=== PATIENT | female | born 1985 | race African-American/Black ===

== ENCOUNTER 2016-08-17 22:16 | Emergency (ER) | payer OTHER ==
[2016-08-17 22:21] VITALS: BMI 28.0
--- NOTE | 2016-08-17 22:53 | PDOC ---
History of Present Illness - General History Source: Patient Exam Limitations: No Limitations - History of Present Illness Initial Comments: 08/17/16 23:12 The patient is a 31 year old female, with no significant past medical history, who presents to the emergency department complaining of vaginal bleeding since earlier this morning. The patient reports her vaginal bleeding has become increasingly heavy during the past hour and she has had to change her pad several times. She describes her heavy bleeding as if she were urinating, but she knows it is not urine. She reports intermittent cramping. She describes her bleeding as large clots, and states these symptoms are not similar to those of when she gets her period. The patient reports visiting her PROCESS DESIGNER for a routine Pap smear, which was negative. Patient reports her test yesterday was negative. The patient denies any vaginal bleeding after her Pap. The patient reports her last menstrual period was 07/15/16. The patient reports a history of 2 abortions and states she is occasionally sexually active. The patient denies any nausea, vomiting, diarrhea, or constipation. She reports some rectal pain in the past, but she does not know if it is associated with her symptoms today. The patient denies any fever, chills, cough, headache, or dizziness. Allergies: None reported. Past Surgical History: X2 Social History: Non-smoker. Denies alcohol or drug use. PCP: Dr. Khanna PROCESS DESIGNER: Dr. Green <Miles Scott - Last Filed: 08/18/16 00:28> - General History Source: Patient Exam Limitations: No Limitations <Sahara Sampson - Last Filed: 08/20/16 08:32> - General Chief Complaint: Vaginal Bleeding Stated Complaint: HEAVY VAGINAL BLEEDING Time Seen by Provider: 08/17/16 22:49 Past History <Miles Scott - Last Filed: 08/18/16 00:28> - Past Medical History Anemia: Yes - Immunization History Immunization Up to Date: Yes - Psycho/Social/Smoking Cessation Hx Anxiety: No Suicidal Ideation: No Smoking Status: No Smoking History: Never smoked Have you smoked in the past 12 months: No Number of Cigarettes Smoked Daily: 0 Hx Alcohol Use: No Drug/Substance Use Hx: No Substance Use Type: None, Marijuana Hx Substance Use Treatment: No <Sahara Sampson - Last Filed: 08/20/16 08:32> - Past Medical History Allergies/Adverse Reactions: Allergies Allergy/AdvReac Type Severity Reaction Status Date / Time No Known Allergies Allergy Verified 08/17/16 22:21 Home Medications: Ambulatory Orders NK [No Known Home Medication] 08/17/16 Review of Systems - Review of Systems Able to Perform ROS?: Yes Comments:: 08/17/16 23:12 GENERAL/CONSTITUTIONAL: No: fever, chills, weakness, loss of appetite. HEAD, EYES, EARS, NOSE AND THROAT: No: change in vision, ear pain, discharge, sore throat, throat swelling. CARDIOVASCULAR: No: chest pain, lightheadedness, palpitations, syncope RESPIRATORY: No: cough, shortness of breath, wheezing, hemoptysis, stridor. GASTROINTESTINAL: Yes:+abdominal cramping. No: nausea, vomiting, diarrhea, rectal bleeding, constipation. GENITOURINARY: No: dysuria, hematuria, frequency, urgency, flank pain. PELVIC: Yes: +vaginal bleeding(clots) MUSCULOSKELETAL: No: back pain, neck pain, joint pain, muscle swelling or pain SKIN AND BREASTS: No: lesions, pallor, rash or easy bruising. NEUROLOGIC: No: headache, vertigo, paresthesias, weakness ENDOCRINE: No: unexplained weight gain or loss HEMATOLOGIC/LYMPHATIC: No: anemia, easy bleeding, swelling nodes <Scott,Giomilsy - Last Filed: 08/18/16 00:28> *Physical Exam - Vital Signs Last Vital Signs Temp Pulse Resp BP Pulse Ox 98.8 F 64 18 107/76 98 08/17/16 22:18 08/17/16 22:18 08/17/16 22:18 08/17/16 22:18 08/17/16 22:18 - Physical Exam Comments: 08/17/16 23:14 GENERAL: The patient is in no acute distress. HEAD: Normal with no signs of trauma. EYES: PERRLA, EOMI, sclera anicteric, conjunctiva clear. ENT: Ears normal, nares patent, oropharynx clear without exudates. Moist mucous membranes. NECK: Normal range of motion, supple without lymphadenopathy, JVD, or masses. LUNGS: Breath sounds equal, clear to auscultation bilaterally. No wheezes, and no crackles. HEART:Regular rate and rhythm, normal S1 and S2 without murmur, rub or gallop. ABDOMEN: Soft, nontender, normoactive bowel sounds. No guarding, no rebound. PELVIC: Metrorrhagia, Blood pooling in vaginal vault EXTREMITIES: Normal range of motion, no edema. No clubbing or cyanosis. No erythema, or tenderness. NEUROLOGICAL: Cranial nerves II through XII grossly intact. Normal speech. No focal neurological deficits. MUSCULOSKELETAL: Back non-tender to palpation, no CVA tenderness SKIN: Warm, Dry, normal turgor, no rashes or lesions noted. <Miles Scott - Last Filed: 08/18/16 00:28> - Vital Signs Last Vital Signs Temp Pulse Resp BP Pulse Ox 98.8 F 64 18 107/76 98 08/17/16 22:18 08/17/16 22:18 08/17/16 22:18 08/17/16 22:18 08/17/16 22:18 <Sahara Sampson - Last Filed: 08/20/16 08:32> ED Treatment Course - LABORATORY CBC & Chemistry Diagram: 08/17/16 23:16 08/17/16 23:16 - RADIOLOGY Radiograph Interpretation: 08/18/16 00:29 EXAM: Pelvic US INTERPRETED BY: Dr. Felix REVIEWED BY: Dr. Sampson IMPRESSION: 2.1 cm complex right ovarian cyst may be collapsing and/or hemorrhagic in nature, with a small amount of pelvic free fluid. <Miles Scott - Last Filed: 08/18/16 00:28> - LABORATORY CBC & Chemistry Diagram: 08/18/16 04:50 08/17/16 23:16 <Sahara Sampson - Last Filed: 08/20/16 08:32> Medical Decision Making - Medical Decision Making 08/18/16 00:28 First call placed to Dr. Green at 00:28. Case discussed at this time. <Miles Scott - Last Filed: 08/18/16 00:28> - Medical Decision Making 08/17/16 22:52 A portion of this note was documented by scribe services under my direction. I have reviewed the details of the note, within reason, and agree with the documentation with the following case summary and management plan written by me. Nursing documentation reviewed and incorporated into medical decision making 08/18/16 00:38 This is a 31-year-old female who presents emergency department with a complaint of his heavy vaginal bleeding. Patient states she was in her usual state of health until this morning when she noted mild vaginal bleeding. Over the course of the day her bleeding became heavier, and is associated with clots. She reports no history of fibroids or cysts in the past. She was seen yesterday by her aircraft maintenance manager within a Pap smear which per patient was uncomplicated and did not immediately result in pain or bleeding. She reports mild lower abdominal crampy pain. Patient denies lightheadedness or dizziness. On examination: Nml external genitalia When speculum is inserted, bright blood noted pooling in the vaginal vault. On bimanual examination, no pain with cervical motion tenderness, no adnexal masses will do basic labs Will do transvaginal US Laboratory Tests 04/22/16 08/17/16 08/17/16 18:30 23:16 23:16 WBC 6.3 7.4 Hgb 13.3 13.7 Hct 40.3 39.8 Plt Count 184 190 INR BUN Creatinine Urine HCG, Qual Negative 08/17/16 08/17/16 23:16 23:16 WBC Hgb Hct Plt Count INR 1.12 BUN 11 Creatinine 1.1 H Urine HCG, Qual Transvaginal ultrasound demonstrates rupturing right-sided hemorrhagic ovarian cyst measuring 2.1 cm. Case reviewed with patient's primary APPLICATIONS TESTER Dr. Green who states patient can be discharged to home if she does not have severe lower abdominal pain. Given the amount of bleeding patient demonstrated on my exam, will hold patient in the ER, repeat CBC in 6 hours. Will ask patient to do a pad count. Will monitor for worsening abdominal pain. Pt signed out to Dr. Redd 08/18/16 00:43 <Sahara Sampson - Last Filed: 08/20/16 08:32> *DC/Admit/Observation/Transfer - Attestations Scribe Attestion: 08/17/16 23:12 Documentation prepared by Miles Scott, acting as medical appointment scheduler for Sahara Sampson MD. <Miles Scott - Last Filed: 08/18/16 00:28> <Sahara Sampson - Last Filed: 08/20/16 08:32> Diagnosis at time of Disposition: Vaginal bleeding - Discharge Dispostion Disposition: HOME Condition at time of disposition: Good - Referrals Referrals: Isaac Khanna [Primary Care Provider] - - Patient Instructions Additional Instructions: As discussed, with the hemoglobin being slightly higher and you pulse rate consistent you are safe for discharge. If there is any increase in bleeding or if you have any chest pain, palpitations, SOB, light headedness, dizziness, or if you are simply not feeling well, please return immediately to the ED.
[2016-08-17 23:31] LABS: BASOPHIL 1.2 % (0-2.0); EOSINOPHIL 3.5 % (0-4.5); MCHC 34.3 g/dl (32.0-36.0); MEAN CELL VOLUME 87.6 fl (80-96); MEAN PLT VOLUME 10.9 fl (7.5-11.1); NEUTROPHILS 57.3 % (42.8-82.8); RDW 13.2 % (11.6-15.6); WHITE BLOOD COUNT 7.4 K/mm3 (4.0-10.0)
[2016-08-18] LABS: PLATELET COUNT 190 K/MM3 (134-434)
[2016-08-18 00:01] LABS: ALBUMIN 4.1 g/dl (3.4-5.0); BILIRUBIN,TOTAL 0.3 mg/dL (0.2-1.0); CALCIUM 9.4 mg/dL (8.5-10.1); CREATININE 1.1 mg/dL (0.55-1.02); PLATELET ESTIMATE ADEQUATE (NORMAL)
[2016-08-18 00:02] LABS: PLATELET COMMENT2 NO CLOTTING DETECTED; PLATELET COMMENT3 MOD LARGE PLTS
[2016-08-18 00:06] LABS: INR 1.12 (0.82-1.09); PROTHROMBIN TIME (PATIENT) 12.4 SEC (9.98-11.88)
[2016-08-18 05:03] LABS: BASOPHIL 0.8 % (0-2.0); EOSINOPHIL 3.3 % (0-4.5); MCH 29.9 pg (25.7-33.7); MCHC 33.8 g/dl (32.0-36.0); MEAN CELL VOLUME 88.6 fl (80-96); MEAN PLT VOLUME 11.1 fl (7.5-11.1); NEUTROPHILS 54.5 % (42.8-82.8); PLATELET COUNT 182 K/MM3 (134-434); RDW 13.5 % (11.6-15.6); WHITE BLOOD COUNT 6.6 K/mm3 (4.0-10.0)
[2016-08-18] MEDS ORDERED: ACETAMINOPHEN 325 MG TABLET (FP) ONE (05:07)
[2016-08-18] MEDS ORDERED: ACETAMINOPHEN 325 MG TABLET (FP) PO ONE (05:08)
[2016-08-18 05:26] LABS: PLATELET ESTIMATE ADEQUATE (NORMAL)
[2016-08-18 05:27] LABS: PLATELET COMMENT2 NO CLOTTING DETECTED
--- NOTE | 2016-08-18 06:10 | PDOC ---
*Physical Exam - Vital Signs Last Vital Signs Temp Pulse Resp BP Pulse Ox 98.2 F 81 17 109/85 99 08/18/16 05:11 08/18/16 05:11 08/18/16 05:11 08/18/16 05:11 08/18/16 05:11 ED Treatment Course - LABORATORY CBC & Chemistry Diagram: 08/18/16 04:50 08/17/16 23:16 - ADDITIONAL ORDERS Additional order review: Laboratory Results 08/17/16 08/17/16 08/17/16 23:16 23:16 23:16 INR 1.12 Sodium 141 Potassium 4.0 Chloride 106 Carbon Dioxide 27 Anion Gap 8 BUN 11 Creatinine 1.1 H Creat Clearance w eGFR 58.72 Random Glucose 94 D Calcium 9.4 Total Bilirubin 0.3 D AST 22 ALT 23 D Alkaline Phosphatase 49 Total Protein 8.0 Albumin 4.1 Urine HCG, Qual Negative 08/18/16 08/17/16 04:50 23:16 RBC 4.43 4.55 MCV 88.6 87.6 MCHC 33.8 34.3 RDW 13.5 13.2 MPV 11.1 10.9 Neutrophils % 54.5 57.3 Lymphocytes % 33.0 31.6 Monocytes % 8.4 6.4 Eosinophils % 3.3 3.5 Basophils % 0.8 1.2 - Medications Given in the ED: ED Medications Discontinued Medications Generic Name Dose Route Start Last Admin Trade Name Clintq PRN Reason Stop Dose Admin Acetaminophen 975 mg 08/18/16 05:08 08/18/16 05:10 Tylenol - PO 08/18/16 05:09 975 mg ONCE ONE Administration Medical Decision Making - Medical Decision Making 08/18/16 06:08 Pt received on sign out, comfortable and with no new complaints; she has a repeat hemoglobin that is consistent with the previous on file; there is no tachycardia and she reports there being a decreased number of pads in the last few hours while awaiting the repeat CBC; she was able to sleep as well. She is feeling well at this time and has no findings on PE; she is encouraged to follow up with the PMD within the next 48 hours and return if there is any change otherwise in symptoms. *DC/Admit/Observation/Transfer Diagnosis at time of Disposition: Vaginal bleeding - Discharge Dispostion Disposition: HOME Condition at time of disposition: Good Admit: No Decision to Admit order Date/Time: 08/18/16 06:06 - Referrals Referrals: Isaac Khanna [Primary Care Provider] - - Patient Instructions Additional Instructions: As discussed, with the hemoglobin being slightly higher and you pulse rate consistent you are safe for discharge. If there is any increase in bleeding or if you have any chest pain, palpitations, SOB, light headedness, dizziness, or if you are simply not feeling well, please return immediately to the ED. - Post Discharge Activity
[2016-08-18 06:32] VITALS: BP 128/81; PULSE 78; TEMP 98.3
== END 2016-08-18 06:33 | disposition home or self-care (01) ==
LOC: JER 22:16
DX: N93.8 Other specified abnormal uterine and vaginal bleeding (principal); N83.201 Unspecified ovarian cyst, right side
CPT/HCPCS: 36415; 76830-TC; 80053; 84703; 85025; 85610; 99284-25

== ENCOUNTER 2017-10-16 23:31 | Emergency (ER) | payer OTHER ==
[2017-10-17] VITALS: BP 129/81; PULSE 86; TEMP 98.5; BMI 31.3
--- NOTE | 2017-10-17 00:48 | PDOC ---
History of Present Illness - General Chief Complaint: Injury Stated Complaint: FINGER INJURY Time Seen by Provider: 10/17/17 00:36 History Source: Patient - History of Present Illness Initial Comments: 10/17/17 02:13 32-year-old female with left fourth digit finger dislocation and pain 2 hours prior to arrival. Patient reports that she had a hand outstretched and accidentally banged the hand on the person in front of her noted to have increased swelling and pain to the DIP. Limited range of motion no deformity noted at this time 0 Past History - Past Medical History Allergies/Adverse Reactions: Allergies Allergy/AdvReac Type Severity Reaction Status Date / Time No Known Allergies Allergy Verified 10/16/17 23:57 Home Medications: Ambulatory Orders Ibuprofen [Motrin -] 600 mg PO QID PRN #20 tablet 10/17/17 Oxycodone HCl/Acetaminophen [Percocet 5-325 mg Tablet] 1 tab PO Q6H PRN #7 tablet MDD 4 10/17/17 Anemia: Yes COPD: Yes - Reproductive History Therapeutic (s) & number: Yes (2) - Immunization History Immunization Up to Date: Yes - Suicide/Smoking/Psychosocial Hx Smoking Status: No Smoking History: Never smoked Have you smoked in the past 12 months: No Number of Cigarettes Smoked Daily: 0 Information on smoking cessation initiated: No Hx Alcohol Use: No Drug/Substance Use Hx: Yes (mirajuana) Substance Use Type: Marijuana Hx Substance Use Treatment: No Review of Systems - Review of Systems Able to Perform ROS?: Yes Is the patient limited [place] proficient: No Constitutional: No: Symptoms Reported, See HPI, Chills, Diaphoresis, Fever, Loss of Appetite, Malaise, Night Sweats, Weakness, Weight Stable, Unintentional Wgt. Loss, Unexplained wgt Loss, Other Musculoskeletal: Yes: Other (left 4th digit DIP joint pain and swelling) *Physical Exam - Vital Signs Last Vital Signs Temp Pulse Resp BP Pulse Ox 98.5 F 86 18 129/81 100 10/16/17 23:53 10/16/17 23:53 10/16/17 23:53 10/16/17 23:53 10/16/17 23:53 - Physical Exam General Appearance: Yes: Appropriately Dressed Extremity: positive: Swelling (left 4 th digit limited rom moderate swelling ) Integumentary: positive: Normal Color, Dry, Warm Neurologic: positive: Fully Oriented, Alert, Normal Mood/Affect Procedures - Splinting Splint Location: Left: Finger Pre-Proc Neuro Vasc Exam: normal *DC/Admit/Observation/Transfer Diagnosis at time of Disposition: Finger fracture, left Qualifiers: Encounter type: initial encounter Finger: ring finger Fracture type: closed Phalanx: distal Fracture alignment: displaced Qualified Code(s): S62.635A - Displaced fracture of distal phalanx of left ring finger, initial encounter for closed fracture - Discharge Dispostion Disposition: HOME Condition at time of disposition: Fair - Prescriptions Prescriptions: Ibuprofen [Motrin -] 600 mg PO QID PRN #20 tablet PRN Reason: Moderate Pain Oxycodone HCl/Acetaminophen [Percocet 5-325 mg Tablet] 1 tab PO Q6H PRN #7 tablet MDD 4 PRN Reason: Moderate Pain - Referrals Referrals: Nya Khanna [Primary Care Provider] - Mino Rosario MD [Staff Physician] - Call tomorrow - Patient Instructions Printed Discharge Instructions: Finger Fracture Additional Instructions: keep finger in splint. follow up wit orthopedic doctor as soon as possible. rest ice take ibuprofen every 6 hours as needed for pain. - Post Discharge Activity Forms/Work/School Notes: Back to Work
== END 2017-10-17 03:22 | disposition home or self-care (01) ==
LOC: JER 23:31
PROC: 2W3KX1Z Immobilization of Left Finger using Splint (ICD-10-PCS; principal; 2017-10-16)
DX: S62.635A Displaced fracture of distal phalanx of left ring finger, initial encounter for closed fracture (principal); W51.XXXA Accidental striking against or bumped into by another person, initial encounter; Y93.89 Activity, other specified; Y92.414 Local residential or business street as the place of occurrence of the external cause; Y99.8 Other external cause status
CPT/HCPCS: 73140-TC-LT-FY; 84703; 99281-25

== ENCOUNTER 2018-07-04 13:58 | Emergency (ER) | payer OTHER ==
[2018-07-04 14:11] VITALS: BP 130/84; PULSE 85; TEMP 98.1; BMI 31.4
[2018-07-04] MEDS ORDERED: MAG HYDROX/AL HYDROX/SIMETH 30 ML UNIT-DOSE CUP PO ONE (15:15)
[2018-07-04] MEDS ORDERED: SODIUM CHLORIDE 1,000 ML IV STA (15:15)
[2018-07-04] MEDS ORDERED: FAMOTIDINE 20 MG/50 ML IVPB 20 MG/50 ML MG IVPB ONE ×2 (15:15→15:22)
[2018-07-04] MEDS ORDERED: MAG HYDROX/AL HYDROX/SIMETH 30 ML UNIT-DOSE CUP ONE (15:22)
--- NOTE | 2018-07-04 15:27 | PDOC ---
History of Present Illness - General Chief Complaint: Nausea/Vomiting Stated Complaint: WEAKNESS / ABD PAIN Time Seen by Provider: 07/04/18 15:05 History Source: Patient - History of Present Illness Timing/Duration: reports: getting worse Quality: reports: severe Abdominal Pain Onset Location: reports: epigastric Pain Radiation: reports: no radiation Past History - Past Medical History Allergies/Adverse Reactions: Allergies Allergy/AdvReac Type Severity Reaction Status Date / Time No Known Allergies Allergy Verified 10/16/17 23:57 Home Medications: Ambulatory Orders Metoclopramide HCl [Reglan] 10 mg PO Q8H #12 tablet 07/04/18 Anemia: Yes Asthma: No Cancer: No Cardiac Disorders: No COPD: Yes - Surgical History Abdominal Surgery: No Appendectomy: No Cardiac Surgery: No - Reproductive History Therapeutic (s) & number: Yes (2) - Immunization History Immunization Up to Date: Yes - Suicide/Smoking/Psychosocial Hx Smoking Status: No Smoking History: Never smoked Have you smoked in the past 12 months: No Number of Cigarettes Smoked Daily: 0 Information on smoking cessation initiated: No Hx Alcohol Use: No Drug/Substance Use Hx: No Substance Use Type: Marijuana Hx Substance Use Treatment: No Review of Systems - Review of Systems Constitutional: No: Fever Respiratory: No: Shortness of Breath Cardiac (ROS): No: Chest Pain ABD/GI: Yes: Nausea, Vomiting. No: Diarrhea : No: Dysuria, Flank Pain, Hematuria *Physical Exam - Vital Signs Last Vital Signs Temp Pulse Resp BP Pulse Ox 98.1 F 85 20 130/84 100 07/04/18 14:07 07/04/18 14:07 07/04/18 14:07 07/04/18 14:07 07/04/18 14:07 - Physical Exam General Appearance: Yes: Appropriately Dressed, Moderate Distress HEENT: positive: Normal Voice Neck: positive: Supple Respiratory/Chest: positive: Lungs Clear, Normal Breath Sounds. negative: Respiratory Distress Cardiovascular: positive: Regular Rate, S1, S2 Gastrointestinal/Abdominal: positive: Normal Bowel Sounds, Tender (to epigastrium, NT over RUQ or mcburneys), Soft. negative: Distended, Guarding, Rebound Musculoskeletal: negative: CVA Tenderness Integumentary: positive: Dry, Warm Neurologic: positive: Fully Oriented, Alert, Normal Mood/Affect Moderate Sedation - Procedure Monitoring Vital Signs: Procedure Monitoring Vital Signs Temperature 98.1 F 07/04/18 14:07 Pulse Rate 85 07/04/18 14:07 Respiratory Rate 20 07/04/18 14:07 Blood Pressure 130/84 07/04/18 14:07 O2 Sat by Pulse Oximetry (%) 100 07/04/18 14:07 ED Treatment Course - LABORATORY CBC & Chemistry Diagram: 07/04/18 15:40 07/04/18 15:40 Medical Decision Making - Medical Decision Making 07/04/18 15:13 33 yo F, no sig hx, here w/ n/v and epigastric pain. States for the past week she's had almost daily symptoms consistent of nausea, vomiting and at some point developed epigastric pain. Reports feeling significantly weak at this time like " I am about to pass out" per pt. Denies any diarrhea, melena, bright blood per rectum, fever or chills. No history of similar episode. Denies alcohol use and smokes marijuana infrequently. Denies frequent NSAID use See exam Gastritis/GERD vs pancreatitis vs biliary source, less likely renal colic or appy -trail of GI cocktail -IVF -labs -reassess 07/04/18 16:35 test +. Pt was unaware. States her menses are sometimes irregular. Last normal menstrual period was around 05/22/2018. Beta quant and ultrasound pending. UA also pending 07/04/18 16:38 07/04/18 18:24 Beta quant over 50,000. Ultrasound read as IUP @ 7 weeks 2 days with cardiac activity. Patient aware of results. Currently asymptomatic and able to tolerate po. Will dc with EL TEACHER follow-up *DC/Admit/Observation/Transfer Diagnosis at time of Disposition: Qualifiers: Weeks of gestation: unspecified Qualified Code(s): Z34.90 - Encounter for supervision of normal , unspecified, unspecified trimester - Discharge Dispostion Disposition: HOME Condition at time of disposition: Improved - Prescriptions Prescriptions: Metoclopramide HCl [Reglan] 10 mg PO Q8H #12 tablet - Referrals Referrals: Nya Khanna [Primary Care Provider] - - Patient Instructions Printed Discharge Instructions: Managing Symptoms of Additional Instructions: Your tests today shows that you are at about 7 weeks 2 days with cardiac activity. Your beta quant was over 50,000. Rest of your labs were normal. Please follow-up with your OB next week for initial care and testing - Post Discharge Activity
[2018-07-04] MEDS ORDERED: ONDANSETRON 4 MG/2 ML VIAL IVPUSH ONE (15:35)
[2018-07-04] MEDS ORDERED: ONDANSETRON 4 MG/2 ML VIAL ONE (15:44)
[2018-07-04 15:52] LABS: BASO % 0.7 % (0-2.0); EOS % 0.9 % (0-4.5); HEMATOCRIT 40.1 % (32.4-45.2); HEMOGLOBIN 13.9 GM/dL (10.7-15.3); LYMPH % 16.5 % (8-40); MCH 30.7 pg (25.7-33.7); MCHC 34.7 g/dl (32.0-36.0); MEAN CELL VOLUME 88.6 fl (80-96); MEAN PLT VOLUME 11.1 fl (7.5-11.1); MONO % 5.5 % (3.8-10.2); NEUT % 76.4 % (42.8-82.8); PLATELET COUNT 175 K/MM3 (134-434); RBC 4.52 M/mm3 (3.60-5.2); RDW 13.2 % (11.6-15.6)
[2018-07-04 16:02] LABS: ALBUMIN 3.7 g/dl (3.4-5.0); ALK PHOS 43 U/L (45-117); ANION GAP 7 MMOL/L (8-16); BILIRUBIN,TOTAL 0.4 mg/dL (0.2-1); BLOOD UREA NITROGEN 6 mg/dL (7-18); CHLORIDE 106 mmol/L (98-107); CO2 24 mmol/L (21-32); CREATININE 0.7 mg/dL (0.55-1.3); GLUCOSE,RANDOM 76 mg/dL (74-106); LIPASE 142 U/L (73-393); POTASSIUM 3.7 mmol/L (3.5-5.1); SGOT/AST 13 U/L (15-37); SGPT/ALT 14 U/L (13-61); SODIUM 137 mmol/L (136-145); TOT PROT 7.7 g/dl (6.4-8.2)
[2018-07-04 18:00] LABS: URINE APPEARANCE CLEAR; URINE BILIRUBIN NEGATIVE (<2.0 mg/dL); URINE COLOR LTYELLOW; URINE GLUCOSE (UA) NEGATIVE (NEGATIVE); URINE KETONE 1+ (NEGATIVE); URINE LEUK ESTERASE NEGATIVE (NEGATIVE); URINE NITRITE NEGATIVE (NEGATIVE); URINE PROTEIN NEGATIVE (NEGATIVE); URINE UROBILINOGEN NEGATIVE mg/dL (0.2-1.0)
== END 2018-07-04 18:34 | disposition home or self-care (01) ==
LOC: JER 13:58
PROC: 3E033GC Introduction of Other Therapeutic Substance into Peripheral Vein, Percutaneous Approach (ICD-10-PCS; principal; 2018-07-04)
PROC: 3E033GC Introduction of Other Therapeutic Substance into Peripheral Vein, Percutaneous Approach (ICD-10-PCS; 2018-07-04)
DX: O26.891 Other specified pregnancy related conditions, first trimester (principal); R10.13 Epigastric pain; R11.2 Nausea with vomiting, unspecified; Z3A.01 Less than 8 weeks gestation of pregnancy
CPT/HCPCS: 36415; 76801-TC; 80053; 80307; 81003; 83690; 84702; 84703; 85025; 96365; 96375; 99282-25; J7030

== ENCOUNTER 2018-07-11 07:38 | Emergency (ER) | payer OTHER ==
[2018-07-11 07:51] VITALS: BP 126/79; PULSE 89; TEMP 98.8; BMI 31.4
[2018-07-11] MEDS ORDERED: ACETAMINOPHEN 325 MG TABLET (FP) PO ONE (08:10)
--- NOTE | 2018-07-11 08:17 | PDOC ---
History of Present Illness - General Chief Complaint: Vaginal Bleeding Stated Complaint: VAGINAL BLEEDING/8 WKS Time Seen by Provider: 07/11/18 08:01 History Source: Patient Exam Limitations: No Limitations Past History - Past Medical History Allergies/Adverse Reactions: Allergies Allergy/AdvReac Type Severity Reaction Status Date / Time No Known Allergies Allergy Verified 07/11/18 07:50 Home Medications: Ambulatory Orders Metoclopramide HCl [Reglan] 10 mg PO Q8H #12 tablet 07/04/18 Anemia: Yes Asthma: No Cancer: No Cardiac Disorders: No COPD: No - Surgical History Abdominal Surgery: No Appendectomy: No Cardiac Surgery: No - Reproductive History Therapeutic (s) & number: Yes (2) - Immunization History Immunization Up to Date: Yes - Suicide/Smoking/Psychosocial Hx Smoking Status: No Smoking History: Never smoked Have you smoked in the past 12 months: No Number of Cigarettes Smoked Daily: 0 Hx Alcohol Use: No Drug/Substance Use Hx: No Substance Use Type: Marijuana Hx Substance Use Treatment: No *Physical Exam - Vital Signs Last Vital Signs Temp Pulse Resp BP Pulse Ox 98.8 F 89 18 126/79 99 07/11/18 07:46 07/11/18 07:46 07/11/18 07:46 07/11/18 07:46 07/11/18 07:46 - Physical Exam General Appearance: No: Apparent Distress Respiratory/Chest: positive: Lungs Clear, Normal Breath Sounds. negative: Respiratory Distress Cardiovascular: positive: Regular Rhythm, Regular Rate, S1, S2. negative: Murmur Female Pelvic Exam: positive: other (small pinkish discharge, no bleeding noted , cervical os closed). negative: adnexal tenderness Gastrointestinal/Abdominal: positive: Normal Bowel Sounds, Soft. negative: Tender, Distended, Guarding, Rebound Integumentary: positive: Normal Color Neurologic: positive: Alert, Normal Mood/Affect Moderate Sedation - Procedure Monitoring Vital Signs: Procedure Monitoring Vital Signs Temperature 98.8 F 07/11/18 07:46 Pulse Rate 89 07/11/18 07:46 Respiratory Rate 18 07/11/18 07:46 Blood Pressure 126/79 07/11/18 07:46 O2 Sat by Pulse Oximetry (%) 99 07/11/18 07:46 Medical Decision Making - Medical Decision Making 33 y/o (hx of 2 abortions), recently found out she was a week ago presents with vaginal spotting from yesterday along with very mild RLQ pain. Mentions she had some spotting around 2 weeks ago as well, but that resolved within a day. Last saw her CLAY PRESS OPERATOR for follow-up 5 days ago. Denies fever, sob, cp, n/v/d, urinary complaints Likely threatened Patient had ultrasound done last week confirming IUP so not suspicious for ectopic Plan: Bhcg, Type and screen, Tylenol, reassess 07/11/18 08:17 Bhcg higher than last week Rh positive Stable for dc 07/11/18 10:31 *DC/Admit/Observation/Transfer Diagnosis at time of Disposition: Threatened - Discharge Dispostion Disposition: HOME Condition at time of disposition: Stable Decision to Admit order: No - Referrals Referrals: Nya Khanna [Primary Care Provider] - 2 Days - Patient Instructions Printed Discharge Instructions: DI for Threatened Additional Instructions: Thank you for choosing [facility]. It was a pleasure taking care of you. Recommend pelvic rest Avoid intercourse or heavy work Continue followup with your CLAY PRESS OPERATOR Return to the Emergency Department if your symptoms worsen or persist, you have fever, shortness of breath, chest pain, severe abdominal pain, heavy vaginal bleeding or other concerning symptoms. - Post Discharge Activity
[2018-07-11] MEDS ORDERED: ACETAMINOPHEN 325 MG TABLET (FP) ONE (08:30)
== END 2018-07-11 10:54 | disposition home or self-care (01) ==
LOC: JER 07:38
PROC: 3E033GC Introduction of Other Therapeutic Substance into Peripheral Vein, Percutaneous Approach (ICD-10-PCS; principal; 2018-07-11)
PROC: 3E0233Z Introduction of Anti-inflammatory into Muscle, Percutaneous Approach (ICD-10-PCS; 2018-07-11)
DX: O26.891 Other specified pregnancy related conditions, first trimester (principal); O20.0 Threatened abortion; Z3A.08 8 weeks gestation of pregnancy
CPT/HCPCS: 36415; 84702; 86850; 86900; 86901; 96372; 96374; 99282-25

== ENCOUNTER 2018-08-24 12:32 | Emergency (ER) | payer OTHER ==
[2018-08-24 12:59] VITALS: TEMP 98.2; BMI 31.4
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
[2018-08-24] MEDS ORDERED: METOCLOPRAMIDE HCL INJECTION 10 MG/2 ML VIAL IVPUSH ONE (13:28)
[2018-08-24] MEDS ORDERED: ACETAMINOPHEN 1000 MG/100 ML VIAL (NON FORMULARY) IVPB ONE (13:28)
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
[2018-08-24] MEDS ORDERED: ACETAMINOPHEN INJECTION 100 ML IVPB ONE (14:07)
[2018-08-24] MEDS ORDERED: METOCLOPRAMIDE HCL INJECTION 10 MG/2 ML VIAL ONE (14:07)
[2018-08-24 14:14] LABS: URINE APPEARANCE CLEAR; URINE BILIRUBIN NEGATIVE (NEGATIVE); URINE COLOR YELLOW; URINE GLUCOSE (UA) NEGATIVE (NEGATIVE); URINE KETONE NEGATIVE (NEGATIVE); URINE LEUK ESTERASE NEGATIVE (NEGATIVE); URINE NITRITE NEGATIVE (NEGATIVE); URINE PROTEIN NEGATIVE (NEGATIVE)
[2018-08-24 14:31] LABS: EOS % 3.3 % (0-4.5); HEMATOCRIT 36.2 % (32.4-45.2); HEMOGLOBIN 12.5 GM/dL (10.7-15.3); LYMPH % 24.3 % (8-40); MCHC 34.5 g/dl (32.0-36.0); MEAN CELL VOLUME 86.9 fl (80-96); MEAN PLT VOLUME 10.8 fl (7.5-11.1); MONO % 6.6 % (3.8-10.2); NEUT % 64.8 % (42.8-82.8); PLATELET COUNT 182 K/MM3 (134-434); RBC 4.16 M/mm3 (3.60-5.2); RDW 13.4 % (11.6-15.6); WHITE BLOOD COUNT 7.2 K/mm3 (4.0-10.0)
[2018-08-24 15:03] LABS: ALBUMIN 3.4 g/dl (3.4-5.0); ALK PHOS 48 U/L (45-117); ANION GAP 8 MMOL/L (8-16); BILIRUBIN,TOTAL 0.1 mg/dL (0.2-1); BLOOD UREA NITROGEN 8 mg/dL (7-18); CALCIUM 9.1 mg/dL (8.5-10.1); CHLORIDE 107 mmol/L (98-107); CO2 20 mmol/L (21-32); CREATININE 0.7 mg/dL (0.55-1.3); GLUCOSE,RANDOM 75 mg/dL (74-106); POTASSIUM 4.4 mmol/L (3.5-5.1); SGOT/AST 24 U/L (15-37); SGPT/ALT 27 U/L (13-61); SODIUM 135 mmol/L (136-145); TOT PROT 7.6 g/dl (6.4-8.2)
[2018-08-24 16:19] VITALS: BP 120/78; PULSE 88
== END 2018-08-24 16:19 | disposition home or self-care (01) ==
LOC: JER 12:32
PROC: 3E033GC Introduction of Other Therapeutic Substance into Peripheral Vein, Percutaneous Approach (ICD-10-PCS; principal; 2018-08-24)
PROC: 3E033NZ Introduction of Analgesics, Hypnotics, Sedatives into Peripheral Vein, Percutaneous Approach (ICD-10-PCS; 2018-08-24)
DX: O26.892 Other specified pregnancy related conditions, second trimester (principal); R10.30 Lower abdominal pain, unspecified; Z3A.14 14 weeks gestation of pregnancy; V43.52XA Car driver injured in collision with other type car in traffic accident, initial encounter; Y92.488 Other paved roadways as the place of occurrence of the external cause; Y93.89 Activity, other specified; Y99.8 Other external cause status
CPT/HCPCS: 36415; 76815-TC; 80053; 81003; 85025; 99282-25; J0131

== ENCOUNTER 2019-02-18 04:45 | Inpatient (IN) | payer OTHER ==
[2019-02-18 05:59] VITALS: BMI 35.7
[2019-02-18 06:31] LABS: BASO % 0.9 % (0-2.0); EOS % 2.2 % (0-4.5); HEMATOCRIT 32.9 % (32.4-45.2); HEMOGLOBIN 11.4 GM/dL (10.7-15.3); LYMPH % 12.8 % (8-40); MCH 29.9 pg (25.7-33.7); MCHC 34.5 g/dl (32.0-36.0); MEAN CELL VOLUME 86.6 fl (80-96); MONO % 7.1 % (3.8-10.2); PLATELET COUNT 148 K/MM3 (134-434); RDW 14.3 % (11.6-15.6); WHITE BLOOD COUNT 11.1 K/mm3 (4.0-10.0)
[2019-02-18 06:51] LABS: INR 0.91 (0.83-1.09); PROTHROMBIN TIME (PATIENT) 10.7 SEC (9.7-13.0)
[2019-02-18 06:54] LABS: ACTIVATED PTT 25.7 SECONDS (25.2-36.5)
[2019-02-18 07:02] LABS: BLOOD UREA NITROGEN 7.3 mg/dL (7-18); CALCIUM 8.8 mg/dL (8.5-10.1); CREATININE 0.7 mg/dL (0.55-1.3); POTASSIUM 3.8 mmol/L (3.5-5.1)
[2019-02-18] MEDS ORDERED: DEXTROSE 5%-LACTATED RINGERS 1,000 ML IV SCH (09:15)
[2019-02-18] MEDS ORDERED: AMPICILLIN - 2 GM in SODIUM CHLORIDE 100 ML IVPB ONE (10:00)
[2019-02-18] MEDS ORDERED: AMPICILLIN SODIUM 2 GM VIAL ONE (10:00)
[2019-02-18] MEDS ORDERED: ELECTROLYTE-148 SOLN 1,000 ML IV SCH (10:15)
--- NOTE | 2019-02-18 10:18 | HP ---
Past Medical History - Admission Chief Complaint: Labor pain History of Present Illness: 33 yo @ 39 weeks gestation, EDC 02/19/19, with one previous , admitted for labor pain. She desires vaginal after previous . History Source: Patient Limitations to Obtaining History: No Limitations - Past Medical History ...: 4 ...Para: 1 ...Term: 1 ...Induced : 2 ...LMP: 05/14/18 ... Weeks Gestation by Dates: 39.6 ...EDC by Dates: 02/19/19 ...EDC by Sono: 02/19/19 - Past Surgical History Past Surgical History: Yes: Hx Myomectomy: No Hx Transabdominal Cerclage: No - Smoking History Smoking history: Unknown if ever smoked Have you smoked in the past 12 months: No Aproximately how many cigarettes per day: 0 - Alcohol/Substance Use Hx Alcohol Use: No - Social History Usual Living Arrangement: Yes: With Child History of Recent Travel: No Home Medications - Allergies Allergies/Adverse Reactions: Allergies Allergy/AdvReac Type Severity Reaction Status Date / Time No Known Allergies Allergy Verified 02/11/19 08:33 - Home Medications Home Medications: Ambulatory Orders Prenat 115/Iron Fum/Folic/Dss [ 19 Tablet] 1 tab PO DAILY 02/07/19 Family Medical History Family History: Unremarkable Review of Systems - Review of Systems Constitutional: reports: No Symptoms Eyes: reports: No Symptoms HENT: reports: No Symptoms Neck: reports: No Symptoms Cardiovascular: reports: No Symptoms Respiratory: reports: No Symptoms Gastrointestinal: reports: No Symptoms Genitourinary: reports: Pain Breasts: reports: No Symptoms Reported Musculoskeletal: reports: No Symptoms Integumentary: reports: No Symptoms Neurological: reports: No Symptoms Endocrine: reports: No Symptoms Hematology/Lymphatic: reports: No Symptoms Psychiatric: reports: No Symptoms Pain Intensity: 7 Physical Exam - Maternity Vital Signs: Vital Signs Temperature 98.5 F 02/18/19 08:00 Pulse Rate 106 H 02/18/19 09:00 Respiratory Rate 18 02/18/19 09:00 Blood Pressure 136/81 02/18/19 09:00 O2 Sat by Pulse Oximetry (%) Constitutional: Yes: Well Nourished Eyes: Yes: Conjunctiva Clear HENT: Yes: Atraumatic Neck: Yes: Supple Cardiovascular: Yes: Regular Rate and Rhythm Lungs: Clear to auscultation - Abdominal Exam/OB Number of Fetuses: Single Presentation: Vertex Contractions: Yes Regularity: Regular Intensity: Mod/Strong - Vaginal Exam/OB Dilatation (cm): 3 Effacement (%): 100 Amniotic Membrane Status: Intact Presentation: Vertex/Position Station: -1 - Physical Exam Musculoskeletal: Yes: WNL Extremities: Yes: WNL ...Motor Strength: WNL Psychiatric: Yes: Alert, Oriented - Labs Lab Results: CBC, BMP 02/18/19 06:00 02/18/19 06:00 Problem List - Problems (1) 39 weeks gestation of Code(s): Z3A.39 - 39 WEEKS GESTATION OF Assessment/Plan 39 weeks gestation Previous Analgesia as needed Anticipate
[2019-02-18] MEDS ORDERED: FENTANYL/BUPIVACAINE/NS/PF - PCEA - 50 ML DISP.SYRIN EP ONE ×2 (10:26→13:19)
[2019-02-18] MEDS ORDERED: OXYTOCIN 30 UNITS in 0.9% NS 30 UNIT/500 ML INFUS.BAG IVPB ONE (10:45)
[2019-02-18] MEDS ORDERED: NALOXONE HCL 0.4 MG/ML VIAL IVPUSH PRN (11:13)
[2019-02-18] MEDS ORDERED: FENTANYL/BUPIVACAINE/NS/PF - PCEA - 50 ML DISP.SYRIN EP SCH (11:15)
[2019-02-18] MEDS ORDERED: AMPICILLIN SODIUM 1 GM VIAL ONE (13:47)
[2019-02-18] MEDS ORDERED: ACETAMINOPHEN INJECTION 100 ML IVPB ONE (13:51)
[2019-02-18] MEDS ORDERED: ACETAMINOPHEN 1000 MG/100 ML VIAL (NON FORMULARY) IVPB ONE (13:53)
[2019-02-18] MEDS ORDERED: GENTAMICIN SO4 80 MG/2 ML VIAL ONE (14:00)
[2019-02-18] MEDS ORDERED: LIDOCAINE HCL 1% PRESERVATIVE FREE - 30ML VIAL ONE (14:01)
[2019-02-18] MEDS ORDERED: OXYTOCIN 20 UNITS in 0.9% NS 20 UNIT/1,000 ML INFUS.BAG IV ONE ×2 (14:01→16:44)
[2019-02-18] MEDS ORDERED: GENTAMICIN 80MG PREMIX BAG IVPB ONE (14:08)
[2019-02-18] MEDS: AMPICILLIN - 1 GM in SODIUM CHLORIDE 100 ML IVPB SCH ×2 (14:16→19:09)
[2019-02-18] MEDS ORDERED: WITCH HAZEL 50% (TUCKS) 40 PAD/JAR PAD TP PRN (15:10)
[2019-02-18] MEDS ORDERED: BENZOCAINE 28 GM HEMORRHOIDAL OINTMENT TP PRN (15:10)
[2019-02-18] MEDS ORDERED: METHYLERGONOVINE MALEATE 0.2 MG/1 ML AMP IM PRN (15:10)
[2019-02-18] MEDS ORDERED: BENZOCAINE 20% 57 GM BOTTLE TP PRN (15:10)
[2019-02-18] MEDS ORDERED: BISACODYL 10 MG SUPP.RECT RC PRN (15:10)
[2019-02-18] MEDS ORDERED: OXYTOCIN 20 UNITS in 0.9% NS 20 UNIT/1,000 ML INFUS.BAG IV SCH (15:15)
--- NOTE | 2019-02-18 15:15 | PN ---
Delivery - Delivery Vaginal Delivery: V-Haresh Type of Anesthesia: Epidural Episiotomy/Laceration: Midline EBL (cc): 300 Delivery, Single - Feeding Plan Initial Plan: Elected not to breastfeed exclusively throughout hospitalization Remarks - Remarks Remarks: Vaginal after previous . of a live infant girl in OP position, over midline episiotomy. Nose / Oropharynx suctioned @ perineum. Cord clamped and cut. Baby handed to Hospice Plan Administrator. Placenta expelled spontaneously intact. Episiotomy repaired with 2.0 Chromic.
[2019-02-18] MEDS ORDERED: GENTAMICIN 80 MG PREMIXED IVPB 80 MG/100 ML BAG IVPB ONE (15:30)
[2019-02-18] MEDS ORDERED: IBUPROFEN 600 MG TABLET (FP) PO ONE (15:34)
[2019-02-18] MEDS: IBUPROFEN 600 MG TABLET (FP) PO PRN (15:40)
[2019-02-18] MEDS: FENTANYL/BUPIVACAINE/NS/PF - PCEA - 50 ML DISP.SYRIN EP SCH (16:48)
[2019-02-18 16:57] LABS: BASO % 0.3 % (0-2.0); EOS % 0.2 % (0-4.5); HEMATOCRIT 31.5 % (32.4-45.2); HEMOGLOBIN 10.5 GM/dL (10.7-15.3); LYMPH % 3.7 % (8-40); MCH 29.5 pg (25.7-33.7); MCHC 33.3 g/dl (32.0-36.0); MEAN CELL VOLUME 88.4 fl (80-96); MEAN PLT VOLUME 10.9 fl (7.5-11.1); MONO % 5.5 % (3.8-10.2); NEUT % 90.3 % (42.8-82.8); PLATELET COUNT 143 K/MM3 (134-434); RBC 3.57 M/mm3 (3.60-5.2); RDW 13.9 % (11.6-15.6); WHITE BLOOD COUNT 21.9 K/mm3 (4.0-10.0)
[2019-02-18 17:33] LABS: PLATELET ESTIMATE DECREASED
[2019-02-18] MEDS: PIPERACILLIN/TAZOB 4.5 GM 4.5 GM in DEXTROSE 5%-WATER 100 ML IVPB SCH (20:30)
[2019-02-18] MEDS: FERROUS SO4 325 MG TABLET (FP) PO SCH (21:36)
[2019-02-19] MEDS: PIPERACILLIN/TAZOB 4.5 GM 4.5 GM in DEXTROSE 5%-WATER 100 ML IVPB SCH ×2 (04:25→12:54)
[2019-02-19 08:19] LABS: BASO % 0.5 % (0-2.0); EOS % 0.5 % (0-4.5); HEMOGLOBIN 10.5 GM/dL (10.7-15.3); LYMPH % 7.7 % (8-40); MCH 29.8 pg (25.7-33.7); MCHC 33.9 g/dl (32.0-36.0); MEAN CELL VOLUME 87.8 fl (80-96); MEAN PLT VOLUME 10.8 fl (7.5-11.1); NEUT % 86.3 % (42.8-82.8); PLATELET COUNT 136 K/MM3 (134-434); RBC 3.53 M/mm3 (3.60-5.2); RDW 14.1 % (11.6-15.6)
--- NOTE | 2019-02-19 08:49 | PN ---
Post Progress Note - Subjective Subjective: Pt seen/evaluated and doing well. Some lower pelvic cramping L>R, otherwise no comlpaints. VB moderate but decreasing. WBC elevated, on IV antibiotics, afebrile. Tolerating diet, ambulating, voiding. Type of Delivery: Vital Signs: Vital Signs Temperature 98.0 F 02/19/19 05:22 Pulse Rate 94 H 02/19/19 05:22 Respiratory Rate 20 02/19/19 05:22 Blood Pressure 140/83 02/19/19 05:22 O2 Sat by Pulse Oximetry (%) 100 02/18/19 16:00 Breast Exam: Yes: Soft Uterus: Yes: Fundus Firm Abdomen/GI: Yes: Abdomen soft, Passing flatus, Tolerating PO Lochia: Yes: Rubra Lochia, amount: Small Extremities: Yes: Calves non-tender Perineum: Yes: Episiotomy Activity: Ambulating - Labs Labs: CBC WBC 25.0 K/mm3 (4.0-10.0) H 02/19/19 07:20 RBC 3.53 M/mm3 (3.60-5.2) L 02/19/19 07:20 Hgb 10.5 GM/dL (10.7-15.3) L 02/19/19 07:20 Hct 31.0 % (32.4-45.2) L 02/19/19 07:20 MCV 87.8 fl (80-96) 02/19/19 07:20 MCH 29.8 pg (25.7-33.7) 02/19/19 07:20 MCHC 33.9 g/dl (32.0-36.0) 02/19/19 07:20 RDW 14.1 % (11.6-15.6) 02/19/19 07:20 Plt Count 136 K/MM3 (134-434) 02/19/19 07:20 MPV 10.8 fl (7.5-11.1) 02/19/19 07:20 Absolute Neuts (auto) 21.6 K/mm3 (1.5-8.0) H 02/19/19 07:20 Neutrophils % 86.3 % (42.8-82.8) H 02/19/19 07:20 Neutrophils % (Manual) 87.0 % (42.8-82.8) H 02/18/19 16:00 Band Neutrophils % 1.0 % 02/18/19 16:00 Lymphocytes % 7.7 % (8-40) L D 02/19/19 07:20 Lymphocytes % (Manual) 2.0 % (8-40) L 02/18/19 16:00 Monocytes % 5.0 % (3.8-10.2) 02/19/19 07:20 Monocytes % (Manual) 8 % (3.8-10.2) 02/18/19 16:00 Eosinophils % 0.5 % (0-4.5) D 02/19/19 07:20 Eosinophils % (Manual) 1.0 % (0-4.5) 02/18/19 16:00 Basophils % 0.5 % (0-2.0) 02/19/19 07:20 Basophils % (Manual) 0.0 % (0-2.0) 02/18/19 16:00 Myelocytes % (Man) 0 % (0-2) 02/18/19 16:00 Promyelocytes % (Man) 0 % (0-2) 02/18/19 16:00 Blast Cells % (Manual) 0 % (0-0) 02/18/19 16:00 Nucleated RBC % 0 % (0-0) 02/19/19 07:20 Metamyelocytes 1 % (0-2) 02/18/19 16:00 Platelet Estimate Decreased 02/18/19 16:00 Problem List - Problems (1) Vaginal delivery Code(s): O80 - ENCOUNTER FOR FULL-TERM UNCOMPLICATED DELIVERY (2) Leukocytosis Code(s): D72.829 - ELEVATED WHITE BLOOD CELL COUNT, UNSPECIFIED Assessment/Plan Continue IV antibiotics repeat CBC regular diet PO pain meds continue present management
[2019-02-19] MEDS: IBUPROFEN 600 MG TABLET (FP) PO PRN ×2 (10:18→22:26)
[2019-02-19] MEDS: FERROUS SO4 325 MG TABLET (FP) PO SCH ×2 (10:18→22:26)
[2019-02-19] MEDS: PRENATAL VITAMINS W/ FOLIC ACID TABLET (FP) PO SCH (10:18)
[2019-02-19] MEDS: ACETAMINOPHEN 325 MG TABLET (FP) PO PRN ×2 (10:18→22:26)
[2019-02-19 12:29] LABS: ANISOCYTOSIS 1+; MACROCYTOSIS 0; OVALOCYTE 1+; PLATELET ESTIMATE DECREASED; TEAR DROP CELLS 1+
[2019-02-19 17:00] LABS: BASO % 0.4 % (0-2.0); EOS % 1.5 % (0-4.5); HEMATOCRIT 30.2 % (32.4-45.2); HEMOGLOBIN 10.1 GM/dL (10.7-15.3); LYMPH % 10.9 % (8-40); MCH 29.4 pg (25.7-33.7); MCHC 33.3 g/dl (32.0-36.0); MEAN CELL VOLUME 88.3 fl (80-96); MEAN PLT VOLUME 11.1 fl (7.5-11.1); NEUT % 82.2 % (42.8-82.8); PLATELET COUNT 135 K/MM3 (134-434); RBC 3.42 M/mm3 (3.60-5.2); RDW 13.8 % (11.6-15.6); WHITE BLOOD COUNT 23.3 K/mm3 (4.0-10.0)
[2019-02-19 17:34] LABS: PLATELET ESTIMATE DECREASED
[2019-02-19] MEDS ORDERED: SENNOSIDES/DOCUSATE COMBO (SENNA PLUS) TABLET (UD) PO PRN (22:00)
[2019-02-20] MEDS: IBUPROFEN 600 MG TABLET (FP) PO PRN ×2 (05:15→14:34)
[2019-02-20] MEDS: ACETAMINOPHEN 325 MG TABLET (FP) PO PRN ×2 (05:16→14:33)
[2019-02-20] MEDS: FENTANYL/BUPIVACAINE/NS/PF - PCEA - 50 ML DISP.SYRIN EP SCH (07:17)
--- NOTE | 2019-02-20 07:18 | DS ---
Physical Exam-PIECER UP Vital Signs: Vital Signs Temperature 97.7 F 02/19/19 22:00 Pulse Rate 77 02/19/19 22:00 Respiratory Rate 18 02/19/19 22:00 Blood Pressure 130/78 02/19/19 22:00 O2 Sat by Pulse Oximetry (%) 100 02/18/19 16:00 Constitutional: Yes: Well Nourished Eyes: Yes: Conjunctiva Clear HENT: Yes: Atraumatic Neck: Yes: Supple Cardiovascular: Yes: Regular Rate and Rhythm Respiratory: Yes: Regular Gastrointestinal: Yes: Normal Bowel Sounds ...Rectal Exam: Yes: WNL Renal/: Yes: WNL Pelvis: Yes: WNL External Genitalia: Yes: Normal Vaginal Exam: Yes: Normal Cervix: Yes: Normal Uterus: Yes: Normal ....Post : Yes: Uterus firm Breast(s): Yes: WNL Musculoskeletal: Yes: WNL Extremities: Yes: WNL Neurological: Yes: Alert, Oriented ...Motor Strength: WNL Psychiatric: Yes: Alert, Oriented Labs: CBC, BMP 02/19/19 16:00 02/18/19 06:00 Delivery - Delivery Vaginal Delivery: V-Haresh Type of Anesthesia: Epidural Episiotomy/Laceration: Midline EBL (cc): 300 Delivery, Single - Stages of Labor Date 1st Stage Initiatied: 02/18/19 Time 1st Stage Initiated: 00:00 Date 2nd Stage Initiated: 02/18/19 Time 2nd Stage Initiated: 14:15 Date of Delivery: 02/18/19 Time of Delivery: 14:52 Time Placenta Delivered: 14:55 - Condition of Extrusion Press Adjuster/Marine Extension Agent Present: Yes Name: Mei Cortes Infant Gender: Female Weight: 6 lb 14 oz Position: OP Total Hours ROM (Hrs/Mins): 5hrs 10min - 1 Minute Total Score: 9 5 Minutes Total Score: 9 - Feeding Plan Initial Plan: Elected not to breastfeed exclusively throughout hospitalization Discharge Summary Reason For Visit: LABOR Current Active Problems 39 weeks gestation of (Acute) Leukocytosis (Acute) , delivered, current hospitalization (Acute) Vaginal delivery (Acute) Procedures: Principal: Hospital Course: Patient with previous , status post vaginal delivery, had uneventful care. Health Concerns: Complication of obesity Plan of Treatment: Ambulation Goals: Return to normal activities 6 weeks . Condition: Good - Instructions Diet, Activity, Other Instructions: Regular diet No douching, no sexual intercourse x 6 weeks F/U with MD in 6 weeks Disposition: HOME - Home Medications Comprehensive Discharge Medication List: Ambulatory Orders Prenat 115/Iron Fum/Folic/Dss [ 19 Tablet] 1 tab PO DAILY 02/07/19 Prescription Drug Monitoring Program (I-STOP) results: I-STOP reviewed and no issues identified
[2019-02-20] MEDS: FERROUS SO4 325 MG TABLET (FP) PO SCH (09:44)
[2019-02-20] MEDS: PRENATAL VITAMINS W/ FOLIC ACID TABLET (FP) PO SCH (09:44)
[2019-02-20 10:57] VITALS: BP 140/82; PULSE 80; TEMP 97.8
== END 2019-02-20 15:30 | disposition home or self-care (01) | DRG 560 ==
LOC: JLDR 04:45 → J3W 17:10
PROVIDERS: ADMIT Obstetrics & Gynecology; ATTEND Obstetrics & Gynecology
PROC: 10E0XZZ Delivery of Products of Conception, External Approach (ICD-10-PCS; principal; 2019-02-18)
PROC: 0W8NXZZ Division of Female Perineum, External Approach (ICD-10-PCS; 2019-02-18)
DX: O34.211 Maternal care for low transverse scar from previous cesarean delivery (principal); O90.89 Other complications of the puerperium, not elsewhere classified; D72.829 Elevated white blood cell count, unspecified; Z3A.39 39 weeks gestation of pregnancy; Z37.0 Single live birth
CPT/HCPCS: 36415; 36600; 59409; 80048; 82803; 85025; 85610; 85730; 86593; 86850; 86900; 86901; J0131

== ENCOUNTER 2020-08-01 17:35 | Emergency (ER) | payer OTHER ==
[2020-08-01 17:41] VITALS: BMI 30.8
[2020-08-01] MEDS ORDERED: ACETAMINOPHEN 1000 MG/100 ML VIAL (NON FORMULARY) IVPB ONE (18:25)
[2020-08-01] MEDS ORDERED: SODIUM CHLORIDE 1,000 ML IV STA (18:25)
[2020-08-01 19:23] LABS: BASO % 1.1 % (0-2.0); EOS % 2.9 % (0-4.5); HEMATOCRIT 40.8 % (32.4-45.2); HEMOGLOBIN 13.9 GM/dL (10.7-15.3); MCH 29.7 pg (25.7-33.7); MCHC 34.1 g/dl (32.0-36.0); MEAN PLT VOLUME 10.9 fl (7.5-11.1); MONO % 6.5 % (3.8-10.2); NEUT % 62.5 % (42.8-82.8); PLATELET COUNT 205 K/MM3 (134-434); RBC 4.69 M/mm3 (3.60-5.2); RDW 13.7 % (11.6-15.6); WHITE BLOOD COUNT 6.7 K/mm3 (4.0-10.0)
[2020-08-01] MEDS ORDERED: ACETAMINOPHEN INJECTION 100 ML IVPB ONE (19:24)
[2020-08-01 19:36] LABS: URINE APPEARANCE CLOUDY; URINE BILIRUBIN NEGATIVE (NEGATIVE); URINE COLOR YELLOW; URINE GLUCOSE (UA) NEGATIVE (NEGATIVE); URINE KETONE TRACE (NEGATIVE); URINE LEUK ESTERASE NEGATIVE (NEGATIVE); URINE NITRITE NEGATIVE (NEGATIVE); URINE PROTEIN NEGATIVE (NEGATIVE); URINE UROBILINOGEN 0.2 mg/dL (0.2-1.0)
[2020-08-01] MEDS ORDERED: LIDOCAINE 5% TOPICAL PATCH TP ONE (19:44)
[2020-08-01 19:47] LABS: CALCIUM 9.5 mg/dL (8.5-10.1)
[2020-08-01 19:48] LABS: BLOOD UREA NITROGEN 10.8 mg/dL (7-18)
[2020-08-01 19:50] LABS: CREATININE 0.9 mg/dL (0.55-1.3)
[2020-08-01 19:52] LABS: BILIRUBIN,TOTAL 0.8 mg/dL (0.2-1); TOT PROT 7.9 g/dl (6.4-8.2)
[2020-08-01] MEDS ORDERED: LIDOCAINE 5% TOPICAL PATCH ONE (20:00)
[2020-08-01 21:52] VITALS: BP 127/92; PULSE 81; TEMP 98.7
[2020-08-02] MEDS ORDERED: LIDOCAINE PATCH REMOVAL MC SCH (08:00)
== END 2020-08-01 21:25 | disposition home or self-care (01) ==
LOC: JER 17:35
PROC: 3E0333Z Introduction of Anti-inflammatory into Peripheral Vein, Percutaneous Approach (ICD-10-PCS; principal; 2020-08-01)
PROC: 3E0337Z Introduction of Electrolytic and Water Balance Substance into Peripheral Vein, Percutaneous Approach (ICD-10-PCS; 2020-08-01)
DX: R10.814 Left lower quadrant abdominal tenderness (principal)
CPT/HCPCS: 36415; 80053; 81003; 83690; 84703; 85025; 86850; 86900; 86901; 87086; 93005; 93010; 99284-25; J0131

== ENCOUNTER 2021-10-09 10:39 | Emergency (ER) | payer OTHER ==
[2021-10-09 10:55] VITALS: BP 113/81; PULSE 104; TEMP 97.9; BMI 33.2
[2021-10-09] MEDS ORDERED: KETOROLAC TROMETHAMINE 30 MG/1 ML VIAL IM ONE (12:32)
[2021-10-09] MEDS ORDERED: KETOROLAC TROMETHAMINE 30 MG/1 ML VIAL ONE (12:50)
== END 2021-10-09 14:07 | disposition home or self-care (01) ==
LOC: JERFT 10:39
PROC: 3E0233Z Introduction of Anti-inflammatory into Muscle, Percutaneous Approach (ICD-10-PCS; principal; 2021-10-09)
DX: M54.2 Cervicalgia (principal); M54.6 Pain in thoracic spine; V79.59XA Passenger on bus injured in collision with other motor vehicles in traffic accident, initial encounter
CPT/HCPCS: 72040-TC; 72070-TC-FY; 99284-25

== ENCOUNTER 2023-12-08 20:25 | Emergency (ER) | payer OTHER ==
[2023-12-08 20:29] VITALS: BP 123/85; PULSE 86; RESP 20; TEMP 99.3; BMI 34.2
== END 2023-12-08 21:06 | disposition home or self-care (01) ==
LOC: JER 20:25 → JERFT 20:25
DX: N64.4 Mastodynia (principal); M79.622 Pain in left upper arm; G89.29 Other chronic pain
CPT/HCPCS: 99283-25